=== PATIENT | male | born 1995 | race African-American/Black ===

== ENCOUNTER 2016-12-15 14:02 | Outpatient (CLI) | payer OTHER ==
--- NOTE | 2016-12-15 15:51 | MRI Report ---
EXAM: LEFT KNEE MRI WITHOUT CONTRAST EXAM DATE: 12/15/2016 02:45 PM. CLINICAL HISTORY: LEFT KNEE PAIN. COMPARISON: None. TECHNIQUE: Multiplanar, multisequence T1-weighted and fluid-sensitive sequences of the knee without c ontrast. Other: None. FINDINGS: Bones: No fractures or subluxations. Nonspecific very mild marrow edema in the outer part of the femo ral condyles and in the anterior part of the lateral tibial plateau. No bone lesions. Articular Cartilage: Unremarkable. Medial Meniscus: The medial meniscus is intact. Lateral Meniscus: The lateral meniscus is intact. Cruciate Ligaments: The anterior and posterior cruciate ligaments are intact. Collateral Ligaments: The medial collateral and lateral collateral ligamentous structures are intact. Tendons: The quadriceps, patellar, semimembranosus, and popliteus tendons are unremarkable. Musculature: Mild edema in the popliteus. No fatty atrophy. Other: No effusion. No popliteal cyst. No loose bodies. A cluster of small septated ganglion cysts ad jacent to the proximal tibiofibular joint extending underneath the popliteus muscle. The medial and l ateral retinacula, patellofemoral ligaments and iliotibial band are intact. No bursitis. The subcutan eous tissues and fat pads are unremarkable. IMPRESSION: 1. Nonspecific very mild marrow edema in the outer part of the femoral condyles and in the anterior p art of the lateral tibial plateau, can be due to mild contusion. No fracture. 2. A cluster of small septated ganglion cysts adjacent to the proximal tibiofibular joint extending u nderneath the popliteus muscle. Mild edema in the popliteus, can be due to mild muscular strain. 3. No other MRI abnormalities or internal derangement in the knee. The menisci, collateral and crucia te ligaments are intact. [facility] MUSCULOSKELET[facility]IOLOGY SECTION Referring Provider Line: [phone] SITE ID: [id number]
== END 2016-12-15 14:03 | disposition home or self-care (01) ==
LOC: DI 14:02
PROVIDERS: ATTEND Orthopaedic Surgery
DX: M67.462 Ganglion, left knee (principal); R60.9 Edema, unspecified

== ENCOUNTER 2018-02-27 22:50 | Emergency (ER) | payer OTHER ==
[2018-02-27] MEDS ORDERED: PANTOPRAZOLE 40 MG TABLET PO STA (23:43)
[2018-02-27] MEDS ORDERED: PHENobarb/HYOSCY/ATROPINE/SCOP 5 ML UDC PO STA (23:43)
[2018-02-27] MEDS ORDERED: LIDOCAINE VISCOUS 2% 15 ML UDC MM STA (23:44)
[2018-02-27] MEDS ORDERED: MAG HYDROX/AL HYDROX/SIMETH 30 ML UDC PO STA (23:44)
--- NOTE | 2018-02-27 23:56 | ED Physician Documentation ---
History of Present Illness - Stated complaint Stated Complaint: DIFFICULTY SWALLOWING - Chief complaint Chief Complaint: General - History obtained from History obtained from: Patient - History of Present Illness Timing: How many days ago (2-3) Improved by: nothing Worsened by: swallowing - Additonal information Additional information: c/o few days of pain with swallowing food or liquids. Has burning in chest, midline. Does not feel as though food is stuck. Review of Systems Constitutional: denies: Fever Cardiac: reports: Chest pain / pressure (midline chest burning, intermittent (not present at this time)) Respiratory: reports: Reviewed and negative GI: denies: Abdominal Pain, Abdominal Swelling, Nausea, Vomiting PD PAST MEDICAL HISTORY - Past Medical History Past Medical History: No Cardiovascular: None Respiratory: None Neuro: None Endocrine/Autoimmune: None GI: None : None HEENT: None Psych: None Musculoskeletal: None Derm: None - Past Surgical History Past Surgical History: No - Present Medications Home Medications: Ambulatory Orders Medication Instructions Recorded Confirmed Cyclobenzaprine [Flexeril] 10 mg PO TID PRN #20 tablet 03/22/16 HYDROcod/ACETAM 5/325 [[place] 5/325] 1 - 2 ea PO Q6H PRN #15 tablet 03/22/16 Ibuprofen [Motrin] 800 mg PO Q8H PRN #30 tablet 03/22/16 Lidocaine HCl [Lidocaine HCl 15 ml MM QID PRN #100 ml 02/28/18 Viscous] Omeprazole 20 mg PO DAILY #14 tablet. 02/28/18 - Allergies Allergies/Adverse Reactions: Allergies Allergy/AdvReac Type Severity Reaction Status Date / Time No Known Drug Allergies Allergy Verified 02/27/18 23:02 - Social History Does the pt smoke?: No Smoking Status: Never smoker Does the pt drink ETOH?: No Does the pt have substance abuse?: No - Immunizations Immunizations are current?: Yes - POLST Patient has POLST: No PD ED PE NORMAL - Vitals Vital signs reviewed: Yes - General General: Alert and oriented X 3, No acute distress, Well developed/nourished - HEENT HEENT: Moist mucous membranes, Pharynx benign - Cardiac Cardiac: RRR, No murmur - Respiratory Respiratory: No respiratory distress, Clear bilaterally - Abdomen Abdomen: Soft, Non tender Results - Vitals Vitals: Vital Signs - 24 hr 1202/27/18 02/28/18 22:59 23:55 00:25 Temperature 36.8 C Heart Rate 50 L Respiratory 17 17 17 Rate Blood Pressure 135/84 H O2 Saturation 100 02/28/18 02/28/18 02/28/18 00:34 01:02 01:30 Temperature Heart Rate 64 55 L Respiratory 16 17 16 Rate Blood Pressure 140/88 H 118/80 O2 Saturation 98 99 Oxygen O2 Source Room air PD MEDICAL DECISION MAKING - ED course Complexity details: re-evaluated patient, considered differential, d/w patient Departure - Departure Disposition: 01 Home, Self Care Clinical Impression: Odynophagia Condition: Good Instructions: ED Acute Pain [facility] Follow-Up: MOJGAN ALVAREZ MD [Primary Care Provider] - (Tomorrow as scheduled) Prescriptions: Lidocaine HCl [Lidocaine HCl Viscous] 15 ml MM QID PRN #100 ml PRN Reason: Abdominal Pain Omeprazole 20 mg PO DAILY #14 tablet. Comments: Follow up with your primary care provider as scheduled. They might recommend further tests such as upper endoscopy and/or a referral to a specialists such as a sales engagement manager. Discharge Date/Time: 02/28/18 01:35
[2018-02-28] MEDS ORDERED: LIDOCAINE VISCOUS 2% 15 ML UDC MM STA (01:20)
[2018-02-28 01:42] VITALS: BP 118/80
== END 2018-02-28 01:35 | disposition home or self-care (01) ==
LOC: ED 22:50
DX: R13.10 Dysphagia, unspecified (principal)
CPT/HCPCS: 99283; A9270

== ENCOUNTER 2019-03-16 05:26 | Emergency (ER) | payer OTHER ==
--- NOTE | 2019-03-16 06:55 | ED Physician Documentation ---
History of Present Illness - Stated complaint Stated Complaint: MALE - Chief complaint Chief Complaint: General - Additonal information Additional information: This is a 24-year-old male who presents with right testicular pain. Patient s tates the pain is been coming and going and has been pretty mild for around a month, but he really started noticing it over the last day, and it kept him up at night last night. States that the pain is an aching that radiates up from his right testicle to his inguinal area. He denies any pain or burning with urination, denies any penile discharge. 2 weeks ago he had a full set of STD testing which was all negative. His girlfriend did test positive for trichomonas on some routine screening in the past, but he tested negative and was treated empirically for this. He denies any concern for sexual transmitted infection at this time. He states that the pain in the testicle is constant and aching. Review of Systems Constitutional: denies: Fever Throat: denies: Dental pain / toothache Cardiac: denies: Chest pain / pressure Respiratory: denies: Dyspnea GI: denies: Abdominal Pain : reports: Testicular pain Skin: denies: Rash PD PAST MEDICAL HISTORY - Past Medical History Past Medical History: Yes Cardiovascular: None Respiratory: None Neuro: None Endocrine/Autoimmune: None GI: None : None HEENT: None Psych: None Musculoskeletal: None Derm: None - Past Surgical History Past Surgical History: No - Present Medications Home Medications: Ambulatory Orders Medication Instructions Recorded Confirmed Cyclobenzaprine [Flexeril] 10 mg PO TID PRN #20 tablet 03/22/16 HYDROcod/ACETAM 5/325 [[place] 5/325] 1 - 2 ea PO Q6H PRN #15 tablet 03/22/16 Ibuprofen [Motrin] 800 mg PO Q8H PRN #30 tablet 03/22/16 Lidocaine HCl [Lidocaine HCl 15 ml MM QID PRN #100 ml 02/28/18 Viscous] Omeprazole 20 mg PO DAILY #14 tablet. 02/28/18 - Allergies Allergies/Adverse Reactions: Allergies Allergy/AdvReac Type Severity Reaction Status Date / Time No Known Drug Allergies Allergy Verified 03/16/19 05:36 - Social History Does the pt smoke?: No Smoking Status: Never smoker Does the pt drink ETOH?: No Does the pt have substance abuse?: No - Immunizations Immunizations are current?: Yes - POLST Patient has POLST: No PD ED PE NORMAL - Vitals Vital signs reviewed: Yes - General General: Alert and oriented X 3, No acute distress - HEENT HEENT: PERRL - Cardiac Cardiac: RRR, No murmur - Respiratory Respiratory: Clear bilaterally - Abdomen Abdomen: Normal bowel sounds, Soft, Non tender, Non distended - Male Male : Other (Normal-appearing, uncircumcised penis. No lesions or discharge. Testicles are normal in appearance, there are no overlying skin changes to the scrotum. Testicles are non-tender bilaterally. Cremaster intact bilaterally.) - Derm Derm: Warm and dry - Extremities Extremities: No deformity - Neuro Neuro: Alert and oriented X 3 - Psych Psych: Normal mood, Normal affect Results - Vitals Vitals: Oxygen O2 Source Room air - Labs Labs: Laboratory Tests 03/16/19 03/16/19 06:50 06:50 Urine Color YELLOW Urine Clarity CLEAR Urine pH 6.5 Ur Specific [place] 1.020 Urine Protein NEGATIVE Urine Glucose (UA) NEGATIVE Urine Ketones NEGATIVE Urine Occult Blood NEGATIVE Urine Nitrite NEGATIVE Urine Bilirubin NEGATIVE Urine Urobilinogen 0.2 (NORMAL) Ur Leukocyte Esterase NEGATIVE Urine RBC None Seen Urine WBC 0-3 Ur Squamous Epith Cells NONE SEEN Urine Bacteria None Seen Urine Culture Comments NOT INDICATED Chlam trachomat DNA PCR NEGATIVE N.gonorrhoeae DNA (PCR) NEGATIVE T. vaginalis (PCR) NEGATIVE - Rads (name of study) US testicular Radiology: Other (Normal testicular US, no massess or evidence of tosion. There is a R epididmal head cyst.) PD MEDICAL DECISION MAKING - ED course Complexity details: considered differential (Torsion, UTI, epididmytis, nephrolithiasis, STI) ED course: Pts testicles are normal on exam. UA is negative for signs of infection. STI is possible but with clean urine and negative recent testing this is unlikely - GC/chlam/trich sent but we will hold off on empiric tx. US shows no obvius explanation for his symptoms - no torsion or signs of epididymitis. The cyst is unlikely to cause his pain. I reviewed these results with the patient and recommended ibuprofen and careful monitoring as well as PCP follow up. I reviewed strict return precautions with an emphasis on signs of torsion or infection. Pt agreed and was discharged home. Departure - Departure Disposition: 01 Home, Self Care Clinical Impression: Testicular pain, right Condition: Good Instructions: ED Testicular Pain [facility] Follow-Up: Liudmila Baxter MD [Primary Care Provider] - Comments: You were seen today for some pain in the right side of your scrotum. Your ultrasound today shows a small cyst on the right testicle, but no obvious cause of your pain. Your urine test looks normal today as well. If you are having any continued pain please follow-up with your primary care provider soon as possible. If your pain is getting worse or if you are noticing any changes to the skin scrotum, or any other concerning symptoms, return to the emergency d epartment for recheck. Discharge Date/Time: 03/16/19 07:40
[2019-03-16 06:58] VITALS: BP 135/96
--- NOTE | 2019-03-16 07:07 | Ultrasound Report ---
Reason: R testicular/scrotal pain Procedure Date: 03/16/2019 Accession Number: [id number] / [id number] Procedure: US - Testicle w/Doppler Limited CPT Code: Final Report FULL RESULT: US: US SCROTUM WITH DOPPLER EXAM: SCROTAL ULTRASOUND WITH DOPPLER EXAM DATE: 03/16/2019 06:50 AM. CLINICAL HISTORY: R testicular/scrotal pain. One month of pain, worsening today. [place] lump superior to testicle. COMPARISON: None. TECHNIQUE: Real time sonographic grayscale and color/spectral Doppler images of the scrotum with static images were obtained. Spectral Doppler was used to completely evaluate the testicular vasculature for torsion. FINDINGS: Right: Testis: 4.6 x 2.2 x 2.9 cm. Normal size and echotexture. No mass. No calcification. Normal arterial and venous flow present. Epididymis: 0.9 cm. Normal size and echotexture. Within the right epididymal head is a 1.2 x 1.0 x 1.4 cm cyst. Normal blood flow. Hydrocele: Trace right hydrocele. Varicocele: None. Testis: 4.6 x 2.0 x 2.5 cm. Normal size and echotexture. No mass. No calcification. Normal arterial and venous flow present. Epididymis: 1.1 cm. Normal size and echotexture. No mass. Normal blood flow is present. Hydrocele: Trace left hydrocele. Varicocele: None. IMPRESSION: 1. Normal ultrasound of the testes. No testicular masses. No sonographic evidence of testicular torsion. 2. Right epididymal head 1.4 cm cyst. [facility]
[2019-03-16 07:11] LABS: BILIRUBIN,URINE NEGATIVE (NEGATIVE); GLUCOSE, URINE (UA) NEGATIVE (NEGATIVE); KETONES,URINE (UA) NEGATIVE (NEGATIVE); LEUKOCYTE ESTERASE, URINE NEGATIVE (NEGATIVE); NITRITE,URINE NEGATIVE (NEGATIVE); OCCULT BLOOD,URINE NEGATIVE (NEGATIVE); PH,URINE 6.5 PH (5.0-7.5); PROTEIN,URINE NEGATIVE (NEGATIVE); UROBILINOGEN,URINE 0.2 (NORMAL) E.U./dL (NORMAL)
[2019-03-16 07:14] LABS: CLARITY,URINE CLEAR (CLEAR)
[2019-03-16 07:20] LABS: BACTERIA,URINE None Seen /HPF (None Seen); RBC,URINE None Seen /HPF (0-5); SQUAMOUS EPITHELIAL CELL,UR NONE SEEN (<= Few)
[2019-03-16 19:45] LABS: TRICHOMONAS VAGINALIS DNA NEGATIVE (NEGATIVE)
== END 2019-03-16 07:40 | disposition home or self-care (01) ==
LOC: ED 05:26
DX: N50.811 Right testicular pain (principal); N50.3 Cyst of epididymis
CPT/HCPCS: 76870; 81001; 87086; 87491; 87591; 87661; 93976; 99284

== ENCOUNTER 2021-12-28 11:32 | Emergency (ER) | payer OTHER ==
[2021-12-28] MEDS ORDERED: PROCHLORPERAZINE 10 MG/2 ML VIAL IVP STA (12:12)
[2021-12-28] MEDS ORDERED: diphenhydrAMINE INJ 50 MG/ML VIAL IVP STA (12:13)
--- NOTE | 2021-12-28 12:14 | ED Physician Documentation ---
History of Present Illness - Stated complaint Stated Complaint: RUEDA - Chief complaint Chief Complaint: General - Additonal information Additional information: 26-year-old male presents emergency department for evaluation of nausea vomiting and headache. Reports that he was descending a staircase when he suddenly began to vomit. It was not preceded by a sensation and nausea. Shortly after vomiting he developed a headache. He had no vision changes. Denies chest pain, shortness of air or abdominal pain. At this time in the emergency department he is alert, well-appearing. Denies that he has the sensation or nausea and vomiting but is endorsing a mild headache. Past medical history is most significant for GERD. Is not currently taking any GERD medications as he is been without a primary to prescribe them. Denies alcohol or tobacco use. Reports he tries to eat healthy in order to control GERD symptoms. Review of Systems Constitutional: denies: Fever, Chills Ears: reports: Reviewed and negative Cardiac: reports: Reviewed and negative Respiratory: reports: Reviewed and negative GI: reports: Vomiting. denies: Abdominal Pain, Nausea : reports: Reviewed and negative Skin: reports: Reviewed and negative PD PAST MEDICAL HISTORY - Past Medical History Cardiovascular: None Respiratory: None Neuro: None Endocrine/Autoimmune: None GI: None : None HEENT: None Psych: None Musculoskeletal: None Derm: None - Past Surgical History Past Surgical History: No - Present Medications Home Medications: Ambulatory Orders Medication Instructions Recorded Confirmed Pantoprazole [Protonix] 40 mg PO DAILY #30 tablet 12/28/21 - Allergies Allergies/Adverse Reactions: Allergies Allergy/AdvReac Type Severity Reaction Status Date / Time No Known Drug Allergies Allergy Verified 12/28/21 11:45 - Social History Does the pt smoke?: No Smoking Status: Never smoker Does the pt drink ETOH?: No Does the pt have substance abuse?: No - Immunizations Immunizations are current?: Yes - POLST Patient has POLST: No PD ED PE NORMAL - General General: Alert and oriented X 3, No acute distress, Well developed/nourished - HEENT HEENT: Atraumatic, Moist mucous membranes - Neck Neck: Supple, no meningeal sign, No adenopathy - Cardiac Cardiac: RRR, No murmur, No gallop - Respiratory Respiratory: No respiratory distress, Clear bilaterally - Derm Derm: Normal color, Warm and dry, No rash - Extremities Extremities: No deformity, No tenderness to palpate, Normal ROM s pain - Neuro Neuro: Alert and oriented X 3, bank cashier 2-12 intact, No motor deficit, No sensory deficit, Normal speech Eye Opening: Spontaneous Motor: Obeys Commands Verbal: Oriented GCS Score: 15 - Psych Psych: Normal mood, Normal affect Results - Vitals Vitals: Vital Signs - 24 hr 12/28/21 12/28/21 11:38 12:09 Temperature 37.2 C Heart Rate 66 71 Respiratory 14 16 Rate Blood Pressure 119/68 117/69 O2 Saturation 100 100 Oxygen O2 Source Room air - Labs Labs: Laboratory Tests 12/28/21 12/28/21 12:25 12:25 WBC 11.5 H RBC 4.89 Hgb 15.7 Hct 46.6 MCV 95.3 H MCH 32.1 H MCHC 33.7 RDW 12.7 Plt Count 294 MPV 8.9 Neut # (Auto) 10.6 H Lymph # (Auto) 0.3 L [place] # (Auto) 0.5 Eos # (Auto) 0.0 Baso # (Auto) 0.0 Absolute Nucleated RBC 0.00 Nucleated RBC % 0.0 Sodium 138 Potassium 4.3 Chloride 101 Carbon Dioxide 30 Anion Gap 7.0 BUN 21 H Creatinine 1.0 Estimated GFR (MDRD) 109 Glucose 98 Calcium 10.0 Total Bilirubin 1.4 H AST 22 ALT 17 Alkaline Phosphatase 49 Total Protein 7.8 Albumin 4.9 Globulin 2.9 Albumin/Globulin Ratio 1.7 Lipase 38 - Rads (name of study) head ct Radiology: Final report received (Normal CT of the brain) PD MEDICAL DECISION MAKING - ED course Complexity details: reviewed results, re-evaluated patient, considered differential, d/w patient ED course: Well-appearing 26-year-old male presents emergency department for evaluation of sudden onset vomiting that was not precipitated by nausea. This occurred when he was climbing stairs. Shortly thereafter he developed a headache. He does report a history of GERD which is currently not treated as he is in between doctors. On exam no focal deficits. Unremarkable vitals. A CBC and electrolytes were without acute worrisome findings. Given the presentation of the symptoms a CT of the head was completed to rule out subarachnoid hemorrhage and was reassuringly negative. In the emergency department he was given IV fluids, Compazine and Benadryl and on reassessment he is completely free of nausea and any headache symptoms. He is discharged home in stable condition I am writing a refill for his Protonix. Advised to follow close with primary care provider otherwise emergent return precautions discussed. Departure - Departure Disposition: Home, Self Care Clinical Impression: Headache Qualifiers: Headache type: unspecified Headache chronicity pattern: acute headache Intractability: not intractable Qualified Code(s): R51.9 - Headache, unspecified Nausea and vomiting Qualifiers: Vomiting type: unspecified Qualified Code(s): R11.2 - Nausea with vomiting, unspecified Condition: Stable Record reviewed to determine appropriate education?: Yes Prescriptions: Pantoprazole [Protonix] 40 mg PO DAILY #30 tablet Comments: You are seen today in the emergency department because you developed sudden vomiting while climbing the stairs and then you had a headache. Here in the emergency department your head CT is normal. We did obtain a CBC and electrolytes that did not show any worrisome findings. Here in the emergency department we gave you some IV fluids, Compazine and Benadryl which seems to have resolved the headache and other symptoms. I suspect the cause your symptoms may be untreated GERD. I am sending a prescription for Protonix to the [facility] in [place]. I would like you to follow closely with your primary care provider. If at any point you develop worsening symptoms, have fevers, uncontrolled vomiting, slurred speech or facial droop then please return immediately to the ER for second evaluation
[2021-12-28 12:34] LABS: BASOPHILS % (AUTO) 0.1 %; EOSINOPHILS % (AUTO) 0.1 %; HCT - HEMATOCRIT 46.6 % (42.0-52.0); HGB - HEMOGLOBIN 15.7 g/dL (14.0-18.0); LYMPHOCYTES # (AUTO) 0.3 10^3/uL (1.5-3.5); MEAN CORPUSCULAR HEMOGLOBIN 32.1 pg (27.0-31.0); MEAN CORPUSCULAR HGB CONC 33.7 g/dL (32.0-36.0); MEAN CORPUSCULAR VOLUME 95.3 fL (80.0-94.0); MEAN PLATELET VOLUME 8.9 fL (7.4-11.4); MONOCYTES # (AUTO) 0.5 10^3/uL (0.0-1.0); MONOCYTES % (AUTO) 4.3 %; NEUTROPHILS # (AUTO) 10.6 10^3/uL (1.5-6.6); NEUTROPHILS % (AUTO) 92.2 %; PLT - PLATELET COUNT 294 10^3/uL (130-450); RED BLOOD COUNT 4.89 10^6/uL (4.70-6.10); RED CELL DISTRIBUTION WIDTH 12.7 % (12.0-15.0); WHITE BLOOD COUNT 11.5 x10^3/uL (4.8-10.8)
[2021-12-28] MEDS ORDERED: SODIUM CHLORIDE 0.9% 1,000 ML IV STA (12:39)
[2021-12-28 12:49] LABS: ALBUMIN 4.9 g/dL (3.2-5.5); ALBUMIN/GLOBULIN RATIO 1.7 (1.0-2.2); BILIRUBIN,TOTAL 1.4 mg/dL (0.2-1.0); POTASSIUM 4.3 mmol/L (3.5-5.0); TOTAL PROTEIN 7.8 g/dL (6.7-8.2)
--- NOTE | 2021-12-28 12:56 | CT Report ---
PROCEDURE: CT brain without contrast INDICATIONS: n/v followed by headache TECHNIQUE: Noncontrast 4.5 mm thick angled axial sections acquired from the foramen magnum to the vertex. For r adiation dose reduction, the following was used: automated exposure control, adjustment of mA and/or kV according to patient size. COMPARISON: None. FINDINGS: Image quality: Excellent. CSF spaces: Basal cisterns are patent. No extra-axial fluid collections. Ventricles are normal in size and shape. Brain: No midline shift. No intracranial masses or hemorrhage. Leonardo-white matter interface is norm al. Skull and face: Calvarium and visualized facial bones are intact, without suspicious lesions. Sinuses: Visualized sinuses and mastoids are clear. IMPRESSION: Normal CT of the brain Reviewed by: Geoff Radford MD on 12/28/2021 11:55 AM EMIGDIO Approved by: Geoff Radford MD on 12/28/2021 11:55 AM EMIGDIO Station ID: [id number]
[2021-12-28 13:53] VITALS: BP 112/67
== END 2021-12-28 13:52 | disposition home or self-care (01) ==
LOC: EDUNIT# → ED 11:32
DX: R11.2 Nausea with vomiting, unspecified (principal); R51.9 Headache, unspecified; K21.9 Gastro-esophageal reflux disease without esophagitis
CPT/HCPCS: 36415; 70450; 80053; 83690; 85025; 96374; 96375; 99283; 99284; J1200